=== PATIENT | female | born 1955 | race Caucasian/White ===

== ENCOUNTER 2020-01-09 21:45 | Emergency (ER) | payer SELFPAY ==
[~2020-01-09] VITALS: Ht 157.5 cm; Wt 95.5 kg
[~2020-01-09 21:45] MED LIST: ADVIL200 MG PO; CIPRO 500MG TA500 MG PO; FLAGYL500 MG PO; LEVAQUIN 750MG750 M1 PO; METRONIDAZOLE500 MG PO; NO HOME MEDICATIONS; NORCO 325 MG-51 TAB PO
[2020-01-09 21:58] VITALS: TEMP 98.8
[2020-01-09 22:32] LABS: BASO % 0.5 % (0.0-2.0); EOS # 0.1 (0.0-0.7); EOS % 1.5 % (0-4.0); GRAN # 4.2 (1.4-6.5); GRAN % 54.1 % (42.2-75.2); HEMATOCRIT 45.2 % (37.0-47.0); HEMOGLOBIN 14.8 g/dl (12.5-16.0); LYMPH # 2.8 (1.2-3.4); LYMPH % 36.2 % (20.0-51.0); MEAN CELL VOLUME 90 fl (80.0-100.0); MEAN CORPUSCULAR HEMOGLOBIN 29 pg (27.0-31.0); MEAN CORPUSCULAR HGB CONC 33 g/dl (33.0-37.0); MEAN PLATELET VOLUME 9.6 fl (7.4-10.4); MONO # 0.6 (0.1-0.6); MONO % 7.4 % (1.7-9.3); PLATELET COUNT 214 K/mm3 (130-400); RED BLOOD COUNT 5.04 M/mm3 (4.10-5.30); REDCELL DISTRIBUTION WIDTH-CV 11.5 % (11.5-14.5)
[2020-01-09 22:38] LABS: PROTHROMBIN TIME 11.2 SECONDS (9.7-12.8)
[2020-01-09 22:42] LABS: ALANINE AMINOTRANSFERASE 22 U/L (9-52); ALBUMIN 4.1 gm/dL (3.5-5.0); ALKALINE PHOSPHATASE 80 U/L (50-136); ANION GAP 9 mmol/L (7-16); AST,SGOT 27 U/L (15-37); BILIRUBIN,TOTAL 0.4 mg/dL (0.0-1.0); BLOOD UREA NITROGEN 13 mg/dL (7-17); CALCIUM 8.9 mg/dL (8.4-10.2); CARBON DIOXIDE 25 mmol/L (22-30); CHLORIDE 107 mmol/L (98-107); CREATININE, serum 0.67 (0.52-1.25); GLUCOSE 117 mg/dL (74-106); LIPASE 102 U/L (23-300); POTASSIUM 3.3 mmol/L (3.4-5.0); SODIUM 142 mmol/L (137-145)
[2020-01-09 22:55] LABS: TROPONIN-I < 0.012 ng/mL (0.000-0.035)
[2020-01-10] MEDS ORDERED: HCTZ12.5TAB PO (03:24)
[2020-01-10 03:30] VITALS: BP 134/90; PULSE 92
== END 2020-01-10 03:40 | disposition home or self-care (01) ==
LOC: COL.ER 21:45
PROVIDERS: Emergency Medicine
DX: I10 Essential (primary) hypertension (principal); F17.210 Nicotine dependence, cigarettes, uncomplicated; Z98.890 Other specified postprocedural states
CPT/HCPCS: J0780; J2270; J2405; J7030; Q9967

== ENCOUNTER → 2021-02-19 | Outpatient (CLI) | payer MEDICAID ==
[~2021-02-19] MED LIST changes: +FLEXERIL 1010 MG/TAB PO; +HCTZ12.5TAB PO; +NORVASC 5MG5 MG/TAB PO; +PROTONIX 40MG T40 MG PO; +TAPAZOLE5 MG PO; +ZESTORETIC 25 M1 TAB PO
== END ==
LOC: COL.RAD 13:13
DX: M17.0 Bilateral primary osteoarthritis of knee (principal)

== ENCOUNTER → 2021-03-06 | Outpatient (CLI) | payer MEDICAID | LOC: COL.RAD 11:33 | DX: E05.90 Thyrotoxicosis, unspecified without thyrotoxic crisis or storm (principal) | CPT/HCPCS: A9516 ==

== ENCOUNTER 2021-05-09 09:15 | Outpatient (RCR) | payer MEDICAID ==
[~2021-05-09 09:15] MED LIST changes: -FLEXERIL 1010 MG/TAB PO; -NORVASC 5MG5 MG/TAB PO; -PROTONIX 40MG T40 MG PO; -TAPAZOLE5 MG PO; -ZESTORETIC 25 M1 TAB PO
[2021-05-23] MEDS ORDERED: PROTONIX 40MG T40 MG PO (09:31)
[2021-05-23] MEDS ORDERED: FLEXERIL 1010 MG/TAB PO (09:32)
[2021-05-23] MEDS ORDERED: TAPAZOLE5 MG PO (09:33)
[2021-05-23] MEDS ORDERED: NORVASC 5MG5 MG/TAB PO (09:33)
[2021-05-23] MEDS ORDERED: ZESTORETIC 25 M1 TAB PO (09:34)
== END 2021-06-05 ==
LOC: MKS.ESL.PT
DX: M25.561 Pain in right knee (principal); M25.562 Pain in left knee; G89.29 Other chronic pain

== ENCOUNTER → 2021-05-14 | Outpatient (CLI) | payer MEDICAID ==
[~2021-05-14] MED LIST changes: +FLEXERIL 1010 MG/TAB PO; +NORVASC 5MG5 MG/TAB PO; +PROTONIX 40MG T40 MG PO; +TAPAZOLE5 MG PO; +ZESTORETIC 25 M1 TAB PO
== END ==
LOC: COL.RAD 14:51
DX: E04.2 Nontoxic multinodular goiter (principal)

== ENCOUNTER 2021-05-23 08:58 | Day surgery (SDC) | payer MEDICAID ==
[~2021-05-23] VITALS: Ht 157.5 cm; Wt 96.7 kg
[2021-05-23] VITALS (10 sets, daily range): BP systolic 103–136; BP diastolic 40–90; PULSE 90–106; TEMP 98–98.9
[~2021-05-23 08:58] MED LIST changes: -FLEXERIL 1010 MG/TAB PO; -NORVASC 5MG5 MG/TAB PO; -PROTONIX 40MG T40 MG PO; -TAPAZOLE5 MG PO; -ZESTORETIC 25 M1 TAB PO
[2021-05-23] MEDS ORDERED: PROTONIX 40MG T40 MG PO (09:31)
[2021-05-23] MEDS ORDERED: FLEXERIL 1010 MG/TAB PO (09:32)
[2021-05-23] MEDS ORDERED: NORVASC 5MG5 MG/TAB PO (09:33)
[2021-05-23] MEDS ORDERED: TAPAZOLE5 MG PO (09:33)
[2021-05-23] MEDS ORDERED: ZESTORETIC 25 M1 TAB PO (09:34)
[2021-05-23 10:03] LABS: BASO # 0.1 (0.0-0.2); BASO % 0.9 % (0.0-2.0); EOS # 0.1 (0.0-0.7); EOS % 2.2 % (0-4.0); GRAN # 3.6 (1.4-6.5); GRAN % 56.4 % (42.2-75.2); HEMOGLOBIN 14.4 g/dl (12.5-16.0); LYMPH # 2.1 (1.2-3.4); LYMPH % 32.8 % (20.0-51.0); MEAN CELL VOLUME 90 fl (80.0-100.0); MEAN CORPUSCULAR HEMOGLOBIN 30 pg (27.0-31.0); MEAN CORPUSCULAR HGB CONC 34 g/dl (33.0-37.0); MEAN PLATELET VOLUME 9.7 fl (7.4-10.4); MONO # 0.5 (0.1-0.6); MONO % 7.4 % (1.7-9.3); PLATELET COUNT 261 K/mm3 (130-400); REDCELL DISTRIBUTION WIDTH-CV 11.9 % (11.5-14.5)
--- NOTE | 2021-05-23 10:06 | NUR ---
Initial visit; Patient thanked Supervisor Inspection [employer] Testing for offering comfort and prayer prior to her surgical procedure.
[2021-05-23 10:17] LABS: CALCIUM 9.7 mg/dL (8.4-10.2); CREATININE, serum 0.7 (0.52-1.25); POTASSIUM 3.4 mmol/L (3.4-5.0)
--- NOTE | 2021-05-23 13:00 | NUR ---
Patient up from OR. Alert and oriented x 3. Assessment complete. Incision to neck with edges well approximated. Patient denies pain at this time. States she does have a sore neck, offered ice chips. Patient denies need for pain medication at this time. No further needs at this time.
--- NOTE | 2021-05-23 18:36 | NUR ---
Patient doing well post op, family at bedside this afternoon. Tolerating clear liquids. States she has a sore throat but denies need for pain medication at this time. Will report off to furniture sales consultant.
[2021-05-24 00:05] VITALS: BP 126/74; PULSE 85; TEMP 98
[2021-05-24 03:40] VITALS: BP 137/89; PULSE 88; TEMP 97.3
--- NOTE | 2021-05-24 04:11 | NUR ---
Alisha had her [place] last night before going to sleep. She said that she started to have pain in her throat. Since then she was sleeping all night with no issues. When I had my rounds this morning she was awake and she denies pain. Call lights given and within reach. Continue to follow.
[2021-05-24 08:03] VITALS: BP 135/57; PULSE 81; TEMP 98
--- NOTE | 2021-05-24 09:13 | NUR ---
SW met with the patient to discuss discharge plan. The patient lives alone in a half-way community in [place]. She states that two of her daughters and her grandchildren also live in [place]. She reports independence with ADLs and does not have any DME. The patient's primary care provider is Arabella France APRN and [facility]. She reports no difficulties obtaining her meds. The patient does not have a DPOA-HC, but she was interested in obtaining a form. MILTON provided. The patient states that she is not and that she has three children: Makenzie (ph#[phone]), Jordana (ph#[phone]), and Lilliana. The patient plans to stay with her daughter, Makenzie, for a night upon discharge and states that a grandchild will then stay with her for a few nights after that. No additional needs at this time. *Discharge plan: home with family support*
[2021-05-24 11:34] VITALS: BP 137/48; PULSE 60; TEMP 97.8
--- NOTE | 2021-05-24 12:05 | NUR ---
First visit from the resource economist. No needs right now
--- NOTE | 2021-05-24 13:48 | NUR ---
PT DISCHARGED AT THIS TIME. NO S.S OF DISTRESS NOTED. PT DENIES PAIN. DISCHARGE INSTRUCTIONS REVIEWED WITH PT AND SHE VERBALIZES THAT SHE UNDERSTANDS. IV ACCESS REMOVED. S/S AND INFECTION DISCUSSED WITH PT. PT BEING TRANSPORTED VIA W/C TO DAUGHTER'S VEHICLE.
== END 2021-05-24 13:50 | disposition home or self-care (01) ==
LOC: SDCO 08:58 → SURG 08:58 → SDCO 11:00 → SURG 12:51 → SDCO 05-24 13:50
PROVIDERS: Surgery
DX: E05.20 Thyrotoxicosis with toxic multinodular goiter without thyrotoxic crisis or storm (principal); I10 Essential (primary) hypertension; K21.9 Gastro-esophageal reflux disease without esophagitis; F17.210 Nicotine dependence, cigarettes, uncomplicated; Z90.710 Acquired absence of both cervix and uterus; Z79.899 Other long term (current) drug therapy; Z80.3 Family history of malignant neoplasm of breast; Z83.3 Family history of diabetes mellitus
CPT/HCPCS: OP; A4648; J0330; J0690; J1100; J2405; J2704; J3010; J7120

== ENCOUNTER 2021-12-27 11:29 | Outpatient (CLI) | payer MEDICAID ==
[~2021-12-27] VITALS: Ht 157.5 cm; Wt 81.8 kg
[2021-12-27 11:15] VITALS: BP 131/81; PULSE 116; TEMP 98.2
[~2021-12-27 11:29] MED LIST changes: +FLEXERIL 1010 MG/TAB PO; +NORVASC 5MG5 MG/TAB PO; +PROTONIX 40MG T40 MG PO; +TAPAZOLE5 MG PO; +ZESTORETIC 25 M1 TAB PO
== END 2021-12-27 13:15 ==
LOC: EUO 11:29
DX: U07.1 COVID-19 (principal); I51.9 Heart disease, unspecified
CPT/HCPCS: M0247; Q0247

== ENCOUNTER → 2022-08-21 | Outpatient (CLI) | payer MEDICAID | LOC: COL.RAD 10:56 | DX: Z01.818 Encounter for other preprocedural examination (principal) ==

== ENCOUNTER → 2023-01-08 | Outpatient (CLI) | payer MEDICARE, MEDICAID ==
[~2023-01-08] MED LIST changes: +ASPIRIN 32325 MG/TAB PO; +LEVAQUIN 5500 MG/TA1 PO; +MOTRIN 800800 MG/TAB PO; +PROTONIX20 MG PO; +ROXICODONE 55 MG/TAB PO; +ULTRAM 50MG TAB50 MG PO; +ZOFRAN 4MG T4 MG/TAB PO
== END ==
LOC: COL.RAD 11:44
DX: Z01.818 Encounter for other preprocedural examination (principal)